=== PATIENT | male | born 1955 | race Caucasian/White ===

== ENCOUNTER 2023-11-10 10:06 | Emergency (ER) | payer BC, SELFPAY ==
--- NOTE | 2023-11-10 10:16 | ED.URI ---
HPI - URI/Sore Throat General Chief Complaint: Upper Respiratory Infection Stated Complaint: Fever,Cough,Scratchy Throat,Headache,Runny Nose Time Seen by Provider: 11/10/23 10:16 Source: patient Mode of arrival: ambulatory Limitations: no limitations History of Present Illness HPI Narrative: Patient is a 68-year-old male that presents with fever, cough, sore throat, headache, runny nose for 1 week. Patient started taking cefdinir 11/06 along with Tessalon Perles. Patient states he feels like he should be feeling better and is not. Patient requesting testing for COVID, flu, RSV. Patient has a on Tuesday. Denies any nausea, vomiting, diarrhea. Related Data Home Medications Medication Instructions Recorded Confirmed alprazolam 0.25 mg tablet mg 11/10/23 atorvastatin 20 mg tablet mg 11/10/23 benzonatate 200 mg capsule mg PO 11/10/23 cefdinir 300 mg capsule mg 11/10/23 clopidogrel 75 mg tablet mg 11/10/23 enalapril maleate 5 mg tablet mg 11/10/23 metoprolol tartrate 25 mg tablet mg 11/10/23 Allergies Allergy/AdvReac Type Severity Reaction Status Date / Time No Known Allergies Allergy Mild Verified 11/10/23 10:16 Review of Systems Review of Systems: All systems reviewed & are unremarkable except as noted in HPI and below Constitutional: Constitutional: Denies body ache(s), Denies chills, Denies fatigue, Reports fever(s), Reports headache(s), Denies malaise and Denies weakness Eyes: Eyes: Denies blurry vision, Denies itchy eyes and Denies loss of vision ENT: Denies otalgia, Denies headache(s), Reports nasal congestion, Denies sinus pain and Reports sore throat Cardiovascular: Cardiovascular: Denies chest pain, Denies irregular heart rhythm and Denies dyspnea Respiratory: Respiratory: Reports cough and Denies dyspnea Gastrointestinal: Gastrointestinal: Denies abdominal pain, Denies diarrhea, Denies nausea and Denies vomiting Musculoskeletal: Musculoskeletal: Denies back pain, Denies myalgias and Denies arthralgias Integumentary/Breasts: Skin/Breast: Denies pruritus and Denies rash Neurologic: Reports headache(s), Denies loss of vision and Denies weakness Psychiatric: Psychiatric: Reports no additional psychiatric complaints Endocrine: Endocrine: Denies fatigue Allergic/Immunologic: Allergic/Immunologic: Denies itchy eyes PMFSH Comments At time of signature, agree with nursing past medical, surgical, social and family history. There is no relevant family history pertinent to the presenting complaint. Exam Const: General: cooperative, healthy appearing, comfortable, no acute distress and well nourished Nutritional Appearance: well nourished Orientation/consciousness: patient oriented x3 Limitations: no limitations HENMT: Head: normal to inspection, normocephalic and atraumatic Ears: hearing grossly normal bilaterally, external ears normal, TM's normal bilaterally, EAC's normal and no periauricular adenopathy Face/Nose/Sinus: Normal external nose present, Abnormal mucous membranes and turbinates present erythematous bilateral and diffuse, normal facial exam, sinuses nontender and face symmetric Face and sinus: normal facial exam, sinuses nontender and face symmetric Mouth: Yes Normal oral and palatal mucosa present, Yes lip normal, Yes tongue normal, Yes Normal salivary glands and ducts present, Yes oropharynx normal and Yes moist mucous membranes Teeth and gingiva: dentition normal Throat: posterior oropharynx normal, tonsils normal and uvula midline Eyes: General: appearance normal, both eyes and all related structures Alignment and Position: alignment normal and position normal Periorbital: periorbital findings normal Eyelids: eyelids normal Pupils: Equal, round and reactive pupils present Neck: Neck: normal visual inspection, full ROM, no lymphadenopathy and supple Chest: Chest palpation & inspection: normal inspection of the chest and normal palpation of entire chest wall Resp: Effort
[2023-11-10 10:27] VITALS: BP 143/86; PULSE 94; RESP 16; TEMP 37.2; O2SAT 98
== END 2023-11-10 11:03 | disposition home or self-care (01) ==
PROVIDERS: Emergency Provider Nurse Practitioner Family
DX: J06.9 Acute upper respiratory infection, unspecified (principal); Z79.899 Other long term (current) drug therapy; Z20.822 Contact with and (suspected) exposure to COVID-19
CPT/HCPCS: 87426; 87804; 99203; G0463

== ENCOUNTER 2024-01-10 09:01 | Emergency (ER) | payer MEDICARE, OTHER, SELFPAY ==
[2024-01-10 09:12] VITALS: BP 122/77; PULSE 70; RESP 16; TEMP 37.4; O2SAT 97
--- NOTE | 2024-01-10 09:18 | ED.SKABFB ---
HPI - Skin/Abscess/Foreign Bdy General Chief complaint: Skin/Abscess/Foreign Body Stated complaint: INSECT BITES Time Seen by Provider: 01/10/24 09:19 Source: patient, RN notes reviewed and old records reviewed Mode of arrival: ambulatory Limitations: no limitations History of Present Illness HPI narrative: 68 year old male who presents to [facility] care with complaints of bug bites or stings to the right upper arm, to the right hand proximal area of 2nd and 3rd fingers and to the left ulnar wrist with redness and some swelling to area. Patient reports that he has been applying Benadryl cream to areas due to itch. Patient reports that he was sitting outside on and is not sure weth he was stung by something or bit by a bug but has those 3 areas that are itchy with redness and some mild swelling. Patient has no difficulty with his breathing or any problems with swallowing, throat pink with no swelling. MD complaint: insect bite/sting and other (swelling and redness of area) Onset (ago): day(s) (2) Severity: mild Severity scale (1-10): 2 Treatments prior to arrival: other (Benadryl ointment) Related Data Home Medications Medication Instructions Recorded Confirmed alprazolam 0.25 mg tablet 0.25 mg PO BID 11/10/23 01/10/24 atorvastatin 20 mg tablet 20 mg PO DAILY 11/10/23 01/10/24 clopidogrel 75 mg tablet 75 mg PO DAILY 11/10/23 01/10/24 enalapril maleate 5 mg tablet 5 mg PO DAILY 11/10/23 01/10/24 metoprolol tartrate 25 mg tablet 12.5 mg PO BID 11/10/23 01/10/24 Allergies Allergy/AdvReac Type Severity Reaction Status Date / Time No Known Allergies Allergy Mild Verified 01/10/24 09:11 Review of Systems Review of Systems: CONSTITUTIONAL: Denies fever, chills, or sweats. CARDIOVASCULAR: Denies chest pain, palpitations, or edema. RESPIRATORY: Denies cough or dyspnea. SKIN: Reports red rash with some swelling to right upper arm to dorsal right hand at area above 2nd and 3rd finger and to ulnar area left wrist with full mobility, noted itching verbalized to areas. MUSCULOSKELETAL: Denies joint pain or myalgia. NEUROLOGIC: Denies headache, numbness, or weakness. All systems reviewed & are unremarkable except as noted in HPI and below PMFSH Comments At time of signature, agree with nursing past medical, surgical, social and family history. There is no relevant family history pertinent to the presenting complaint Exam Narrative: GENERAL: Well-appearing, well-nourished, and in no acute distress. HEAD: Normocephalic, atraumatic. EYES: PERRLA, conjunctivae clear, and EOMI. ENT: Mucous membranes moist. Oropharynx without edema, erythema or lesions. NECK: Supple. No lymphadenopathy CHEST: Clear to auscultation. No respiratory distress. HEART: Regular rate and rhythm. SKIN: Warm, dry.? Patches of erythema and edema to right upper arm, right dorsal hand above 2nd and 3rd fingers and to ulna aspect of left wrist, denies any tingling or numbness strong radial pulses bilaterally no open wound areas. NEURO:? Alert and oriented x3. PSYCH: Normal mood and affect Course Course Emergency Course: Patient is aware of diagnosis, understands and agrees to treatment plan.? Anticipatory guidance given.? Patient agrees to follow-up as directed and is aware of reasons to seek care at the emergency department. Portions of this record may have been created with voice recognition software Level of Care: Express Care Visit Vital Signs Vital signs: Vital Signs Temperature 37.4 C 01/10/24 09:12 Pulse Rate 70 01/10/24 09:12 Respiratory Rate 16 01/10/24 09:12 Blood Pressure 122/77 01/10/24 09:12 Pulse Oximetry 97 01/10/24 09:12 Temperature 37.4 C 01/10/24 09:12 Pulse Rate 70 01/10/24 09:12 Respiratory Rate 16 01/10/24 09:12 Blood Pressure 122/77 01/10/24 09:12 Pulse Oximetry 97 01/10/24 09:12 Reviewed MDM - Skin/Abscess/Foreign Bdy MDM Narrative Medical decision making robert
== END 2024-01-10 09:42 | disposition home or self-care (01) ==
PROVIDERS: Emergency Provider Registered Nurse
DX: L25.8 Unspecified contact dermatitis due to other agents (principal); S60.862A Insect bite (nonvenomous) of left wrist, initial encounter; W57.XXXA Bitten or stung by nonvenomous insect and other nonvenomous arthropods, initial encounter; Z95.5 Presence of coronary angioplasty implant and graft
CPT/HCPCS: 99213; G0463